=== PATIENT | male | born 1985 | race Caucasian/White ===

== ENCOUNTER 2018-05-17 10:59 | Emergency (ER) | payer OTHER ==
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
[2018-05-17] MEDS ORDERED: LET GEL TOPICAL 1 EA SYR TP ONE (11:08)
[2018-05-17 11:22] LABS: PLATELET COUNT 232 10^3/uL (150-400)
[2018-05-17] MEDS ORDERED: IOPAMIDOL (ISOVUE-300) 100 ML BTL ONE (11:36)
[2018-05-17] MEDS ORDERED: fentaNYL 100 MCG/2 ML INJ IVP ONE ×2 (11:43→13:12)
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
[2018-05-17] MEDS ORDERED: ASPIRIN 81 MG CHEWABLE TAB ONE (13:26)
== END 2018-05-17 14:43 | disposition home or self-care (01) ==
DX: S42.031A Displaced fracture of lateral end of right clavicle, initial encounter for closed fracture (principal); S22.41XA Multiple fractures of ribs, right side, initial encounter for closed fracture; V18.0XXA Pedal cycle driver injured in noncollision transport accident in nontraffic accident, initial encounter; Y93.55 Activity, bike riding; Y99.8 Other external cause status
CPT/HCPCS: 96374; J3010; Q9967